=== PATIENT | female | born 1965 | race Caucasian/White ===

== ENCOUNTER 2018-03-30 20:18 | Emergency (ER) | payer OTHER ==
[2018-03-30] MEDS ORDERED: LORazepam 2 MG/ML INJ IVP ONE (20:42)
[2018-03-30] MEDS ORDERED: ONDANSETRON 4 MG/2 ML VIAL IVP ONE (20:42)
[2018-03-30] MEDS ORDERED: HYDROmorphONE/DILAUDID 1 MG/ML INJ IVP ONE (20:42)
--- NOTE | 2018-03-30 20:42 | EDPHY ---
H & P Stated Complaint: L elbow injury, fell while hiking, decreased ROM Time Seen by Provider: 03/30/18 20:32 HPI/ROS: CHIEF COMPLAINT: Left elbow pain HISTORY OF PRESENT ILLNESS: 52-year-old female arrives via private vehicle complaining of acute left elbow pain . The patient was hiking, slipped, landed on her outstretched arm, felt immediate left elbow pain. This was a mechanical incident. No head injury. No proximal distal pain or injury to her left upper extremity. She also sustained an abrasion to her right hip however she was able to continue hiking and denies lower extremity pain. REVIEW OF SYSTEMS: 10 systems reviewed and negative with the exception of the elements mentioned in the history of present illness PAST MEDICAL/SURGICAL HISTORY: no anticoagulant use, no relevant medical/ surgical history SOCIAL HISTORY: denies alcohol use at time of incident. 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 Appears uncomfortable Answering questions appropriately. 2) HEAD: Normocephalic, atraumatic 3) HEENT: Pupils equal, round, reactive to light bilaterally. Negative Horners. Nasopharynx, oropharynx, clear. No deformity or angulation of nose. No septal hematoma. No rhinorrhea. No oral trauma. Ears bilaterally with normal tympanic membranes. No hemotympanum. No fluid or blood in the external auditory canal. No raccoon eyes. No Bain sign. Teeth are normally aligned with no gross malocclusion, TMJ bilaterally nontender, facial bones nontender including the zygomatic arch, maxilla mandible. 4) NECK: No cervical collar is on. Posterior cervical spine is nontender, no stepoff, no effusion. Full range of motion which does not elicit any midline cervical spine pain, no posterior midline tenderness, no step-off. 5) LUNGS: Clear to auscultation bilaterally, no wheezes, no rhonchi, no retractions. No obvious signs of trauma. No chest wall pain. No flaring, no grunting. Moving symmetrically. No crepitus. 6) HEART: [Regular rate and rhythm, 7) ABDOMEN: No guarding, no rebound, no focal tenderness, no peritoneal signs, no signs of trauma, no ecchymosis 8) MUSCULOSKELETAL: Left upper extremity: Guarding left upper extremity: Noted step-off to the dorsal aspect of the elbow consistent with dislocation. Intact skin. Radial ulnar median nerve function intact distally. Proximally distally nontender. Soft compartments. No tenting of tissue. Right lower extremity: Right anterior iliac crest abrasion with no underlying osseous discomfort, no greater trochanteric pain or inguinal pain. Moving all extremities, no focal areas of tenderness, no obvious trauma. 9) BACK: No midline vertebral tenderness, no fluctuance, no step-off, no obvious trauma, no visual or palpable abnormality. 10) SKIN: No laceration. No abrasion DIFFERENTIAL DIAGNOSIS: In no particular including but not limited to elbow fracture, dislocation, radial head fracture - Personal History LMP (Females 10-55): Post Menopausal Current Tetanus/Diphtheria Vaccine: No Current Tetanus Diphtheria and Acellular Pertussis (TDAP): No - Medical/Surgical History Hx Asthma: No Hx Chronic Respiratory Disease: No Hx Diabetes: No Hx Cardiac Disease: No Hx Renal Disease: No Hx Cirrhosis: No Hx Alcoholism: No Hx HIV/AIDS: No Hx Splenectomy or Spleen Trauma: No Other PMH: L elbow sx - Social History Smoking Status: Never smoked Constitutional: Initial Vital Signs Temperature (C) 36.7 C 03/30/18 20:22 Heart Rate 58 L 03/30/18 20:22 Respiratory Rate 18 03/30/18 20:22 Blood Pressure 108/68 03/30/18 20:22 O2 Sat (%) 96 03/30/18 20:22 O2 Delivery Mode Room Air O2 (L/minute) 2 Allergies/Adverse Reactions: No Known Allergies Allergy (Unverified 03/30/18 20:21) Home Medications: Medication Instructions Recorded Adderall 10 MG (*) 03/30/18 Hydrocodone/APAP 5/325 [[place] 1 tab PO Q6 PRN #7 tab 03/30/18 5/325 (RX)] Medical Decision Making - Diagnostics Imaging Results: Imaging Impressions Elbow X-Ray 03/30/18 20:28 Impression: Left elbow dislocation. Elbow X-Ray 03/30/18 21:29 Impression: 1. Anatomic alignment following reduction. 2. Joint effusion. 3. Multiple ossicles are present adjacent to the lateral epicondyle. Images myself Procedures: 9:20 p.m.: Procedure: Dislocation reduction. . The dislocation of the left elbow was reduced using traction and counter traction technique without complications. Post reduction the patient's neurovascular exam is normal. Post reduction x-ray demonstrates reduction of the joint to the anatomic position. The procedure was performed by myself. Procedure: Splint A posterior Ortho Glass splint and sling was applied by ER electronics repair technician. After application of the splint I returned and re-examined the patient. The splint was adequately immobilizing the joint and distal to the splint the patient's circulation and sensation were intact. Patient shows no signs of compartment syndrome. Was given orthopedic precautions. ED Course/Re-evaluation: Patient was re-evaluated with serial exams. Closed reduction in the emergency department with placement of splint. Recommend follow up with Orthopedics. Explained the limitations of x-ray in the diagnosis of her left elbow pain. She is neurovascular intact no evidence of compartment syndrome. She has no other injuries beyond an abrasion to her right iliac crest. She has no complaints of hip or groin pain. I do not think that further imaging indicated at this time. Both she and her her feel comfortable being discharged with my usual customary orthopedic precautions instructions. I saw this patient independently based on established practice protocols. Care of patient under supervision of secondary supervising physician Dr Ramírez with whom I discussed case. - Data Points Medications Given: Discontinued Medications Hydrocodone Bitart/Acetaminophen ([place] 5/325mg Prepack#6) 1 btl TAKEHOME EDNOW ONE Stop: 03/30/18 21:47 Last Admin: 03/30/18 22:10 Dose: 1 btl Hydromorphone HCl (Dilaudid) 1 mg IVP EDNOW ONE Stop: 03/30/18 20:43 Last Admin: 03/30/18 21:18 Dose: 0.5 mg Lorazepam (Ativan Injection) 1 mg IVP EDNOW ONE Stop: 03/30/18 20:43 Last Admin: 03/30/18 21:18 Dose: 1 mg Ondansetron HCl (Zofran) 4 mg IVP EDNOW ONE Stop: 03/30/18 20:43 Last Admin: 03/30/18 21:18 Dose: 4 mg Departure - Departure Disposition: Home, Routine, Self-Care Clinical Impression: Dislocation of left elbow Qualifiers: Encounter type: initial encounter Qualified Code(s): S53.105A - Unspecified dislocation of left ulnohumeral joint, initial encounter Condition: Good Instructions: Hydrocodone/Acetaminophen (By mouth), Elbow Dislocation (ED) Additional Instructions: Return to the ER immediately if you experience discoloration, have worsening pain, numbness, tingling, or any other symptoms that concern you. If you received x-rays in the emergency department today, be advised, that ligamentous , tendon, muscular, and other non-bony injury cannot be fully ruled out. Try to keep your affected extremity elevated above the level of your chest, and keep cold packs on the affected area, for the next 48 hours. Referrals: Leighton Torres MD [Medical Doctor] - 2-3 days, call for appt. Prescriptions: Hydrocodone/APAP 5/325 [[place] 5/325 (RX)] 1 tab PO Q6 PRN #7 tab PRN Reason: Pain, Severe
[2018-03-30] MEDS ORDERED: HYDROCOD/APAP 5/325 PREPACK#6 BTL TAKEHOME ONE (21:46)
[2018-03-30 22:25] VITALS: BP 111/56
== END 2018-03-30 22:25 | disposition home or self-care (01) ==
PROC: 0RSMXZZ Reposition Left Elbow Joint, External Approach (ICD-10-PCS; principal; 2018-03-30)
DX: S53.105A Unspecified dislocation of left ulnohumeral joint, initial encounter (principal); W01.0XXA Fall on same level from slipping, tripping and stumbling without subsequent striking against object, initial encounter; Y93.01 Activity, walking, marching and hiking; Y92.828 Other wilderness area as the place of occurrence of the external cause
CPT/HCPCS: 96374; J1170; J2060; J2405; L3980